=== PATIENT | female | born 1950 | race Caucasian/White ===

== ENCOUNTER 2018-09-18 09:00 | Inpatient (IN) | payer OTHER ==
[~2018-09-18] VITALS: Ht 162.6 cm; Wt 81.6 kg
[2018-09-18] MEDS ORDERED: SYNTHROID100 MCG PO (11:42)
[2018-09-18] MEDS ORDERED: GABAPENTIN400 MG PO (11:43)
[2018-09-18] MEDS ORDERED: SINGULAIR10 MG PO (11:43)
[2018-09-18] MEDS ORDERED: [UNRECOGNIZED DRUG - OTHER] PO (11:44)
[2018-09-18] MEDS ORDERED: FOSAMAX70 MG PO (11:44)
[2018-09-18] MEDS ORDERED: PROTONIX20 MG PO (11:45)
[2018-09-27] MEDS ORDERED: CEFADROXIL500 MG PO (17:13)
[2018-09-27] MEDS ORDERED: PERCOCET 5-3251 EACH PO (17:13)
[2018-09-27] MEDS ORDERED: ELIQUIS2.5 MG PO (17:13)
== END 2018-09-27 18:15 | DRG 470 ==
LOC: SURG 09-25 05:54 → O/R 09-25 05:54 → SURH 09-25 09:00 → SURG 09-25 10:29 → SURH 09-25 13:45 → SURG 09-27 18:15
PROVIDERS: Orthopaedic Surgery
PROC: 0MNP0ZZ Release Left Knee Bursa and Ligament, Open Approach (ICD-10-PCS; 2018-09-25)
PROC: 3E0F7GC Introduction of Other Therapeutic Substance into Respiratory Tract, Via Natural or Artificial Opening (ICD-10-PCS; 2018-09-25)
PROC: 0SRD0J9 Replacement of Left Knee Joint with Synthetic Substitute, Cemented, Open Approach (ICD-10-PCS; principal; 2018-09-25 13:45)
DX: M17.12 Unilateral primary osteoarthritis, left knee (principal); D62 Acute posthemorrhagic anemia; J45.998 Other asthma; M81.0 Age-related osteoporosis without current pathological fracture; E03.8 Other specified hypothyroidism

== ENCOUNTER 2020-09-01 09:16 | Outpatient (CLI) | payer OTHER ==
[~2020-09-01 09:16] MED LIST: CEFADROXIL500 MG PO; ELIQUIS2.5 MG PO; FOSAMAX70 MG PO; GABAPENTIN400 MG PO; PERCOCET 5-3251 EACH PO; PROTONIX20 MG PO; SINGULAIR10 MG PO; SYNTHROID100 MCG PO; [UNRECOGNIZED DRUG - OTHER] PO
== END 2020-09-01 09:19 | disposition home or self-care (01) ==
LOC: LAB 09:16
PROVIDERS: ATTEND Orthopaedic Surgery
DX: Z20.828 Contact with and (suspected) exposure to other viral communicable diseases (principal); D68.8 Other specified coagulation defects; M17.11 Unilateral primary osteoarthritis, right knee

== ENCOUNTER 2020-09-02 11:00 | Inpatient (IN) | payer OTHER ==
[~2020-09-02] VITALS: Ht 157.5 cm; Wt 81.6 kg
[2020-09-11] MEDS ORDERED: PERCOCET 5-3251 EACH PO (07:06)
[2020-09-11] MEDS ORDERED: ELIQUIS2.5 MG PO (07:06)
== END 2020-09-11 13:46 | DRG 470 ==
LOC: SURG 09-08 06:00 → O/R 09-08 06:00 → SURH 09-08 07:00 → SURG 09-08 11:05
PROVIDERS: ADMIT Orthopaedic Surgery; ATTEND Orthopaedic Surgery
PROC: 0SRC0J9 Replacement of Right Knee Joint with Synthetic Substitute, Cemented, Open Approach (ICD-10-PCS; principal; 2020-09-08 07:00)
DX: M17.11 Unilateral primary osteoarthritis, right knee (principal); E03.9 Hypothyroidism, unspecified; I12.9 Hypertensive chronic kidney disease with stage 1 through stage 4 chronic kidney disease, or unspecified chronic kidney disease; N18.2 Chronic kidney disease, stage 2 (mild); M81.8 Other osteoporosis without current pathological fracture